=== PATIENT | female | born 1940 | race Caucasian/White ===

== ENCOUNTER 2018-11-27 08:51 | Emergency (ER) | payer OTHER, MEDICAID ==
[~2018-11-27] VITALS: Ht 172.7 cm; Wt 68.1 kg
[2018-11-27 09:19] LABS: CLARITY,URINE CLOUDY (Clear); COLOR,URINE YELLOW (Yellow); GLUCOSE, URINE NEGATIVE (Neg); KETONES,URINE NEGATIVE (Neg); LEUKOCYTE ESTERASE ,URINE LARGE (Neg); NITRITES, URINE NEGATIVE (Neg); OCCULT BLOOD,URINE TRACE-INTACT (Neg); PH,URINE 5.5 (4.8-8.0); PROTEIN,URINE NEGATIVE (Neg); UROBILINOGEN,URINE 0.2 E.U/dL (0.2-1.0)
[2018-11-27 09:23] LABS: UA COLLECTION TYPE CLN CATCH MIDSTREAM
[2018-11-27 09:24] LABS: MUCUS STRANDS FEW /LPF (Neg); SQUAMOUS EPITHELIAL CELL,UR FEW /LPF (FEW); WBC,URINE TNTC /HPF (0-4)
[2018-11-27 09:25] LABS: BACTERIA,URINE 1+ /HPF (Neg); RBC,URINE 0-2 /HPF (0-2)
--- NOTE | 2018-11-27 10:31 | NUR ---
report from Clemente VINSON, care assumed
[2018-11-27] MEDS ORDERED: CEPH500C5 PO (10:40)
[2018-11-27] MEDS ORDERED: PHEN-716 PO (10:50)
[2018-11-27] MEDS: cephalexin 500mg capsule PO ONE (11:02)
[2018-11-27 11:04] VITALS: BP 147/84
== END 2018-11-27 11:05 | disposition home or self-care (01) ==
LOC: ER 08:52
DX: N39.0 Urinary tract infection, site not specified (principal); I10 Essential (primary) hypertension; F03.90 Unspecified dementia, unspecified severity, without behavioral disturbance, psychotic disturbance, mood disturbance, and anxiety; Z79.2 Long term (current) use of antibiotics; Z79.899 Other long term (current) drug therapy
CPT/HCPCS: 81001; 87077; 87088; 87186; 99284

== ENCOUNTER 2020-12-10 09:22 | Emergency (ER) | payer BC, MEDICAID ==
[~2020-12-10] VITALS: Ht 172.7 cm; Wt 81.8 kg
[~2020-12-10 09:22] MED LIST: PHEN-716 PO
[2020-12-10 09:27] VITALS: BP 160/67
[2020-12-10] MEDS ORDERED: CEPH250T PO (11:27)
== END 2020-12-10 11:43 | disposition home or self-care (01) ==
LOC: ER 09:24
DX: L08.9 Local infection of the skin and subcutaneous tissue, unspecified (principal); F03.90 Unspecified dementia, unspecified severity, without behavioral disturbance, psychotic disturbance, mood disturbance, and anxiety; E11.9 Type 2 diabetes mellitus without complications; I10 Essential (primary) hypertension; Z79.2 Long term (current) use of antibiotics; Z79.899 Other long term (current) drug therapy
CPT/HCPCS: 73660; 99283

== ENCOUNTER 2021-04-08 21:45 | Emergency (ER) | payer BC, MEDICAID ==
[~2021-04-08] VITALS: Ht 175.3 cm; Wt 75.0 kg
--- NOTE | 2021-04-08 22:20 | NUR ---
Left message with listed number of daughter named Wilma.
--- NOTE | 2021-04-08 22:26 | NUR ---
spoke with [employer], pt is confused and has no where to go, does not know where she is. We explained that we will be doing a medical workup to rule out any medical issues.
[2021-04-08 22:34] VITALS: BP 177/96
[2021-04-08 23:16] LABS: BASOPHILS % (AUTO) 0.3 % (0-1); EOSINOPHILS % (AUTO) 0.4 % (0-6); HEMATOCRIT 39.3 % (35.0-45.0); HEMOGLOBIN 13.1 g/dl (12.0-16.0); LYMPHOCYTES # (AUTO) 1.3 X10'3 (1.1-4.8); MEAN CORPUSCULAR HEMOGLOBIN 29.2 PG (27.0-31.0); MEAN CORPUSCULAR HGB CONC 33.2 g/dL (33.0-36.5); MEAN CORPUSCULAR VOLUME 87.8 FL (78-98); MEAN PLATELET VOLUME 7.9 FL (7.4-10.4); MONOCYTES # (AUTO) 0.7 X10'3 (0-0.9); MONOCYTES % (AUTO) 9.3 % (2-12); NEUTROPHILS # (AUTO) 5.4 X10'3 (1.8-7.7); PLATELET COUNT 254 X10'3 (140-440); RED BLOOD COUNT 4.48 X10'6 (4.20-5.60); RED CELL DISTRIBUTION WIDTH 14.4 % (11.5-14.5); WHITE BLOOD COUNT 7.5 X10'3 (4.5-11.0)
[2021-04-08 23:35] LABS: ALANINE AMINOTRANSFERASE 33 U/L (12-78); ALBUMIN 3.6 G/DL (3.4-5.0); ALKALINE PHOSPHATASE 208 IU/L (46-116); ANION GAP 11 (8-16); ASPARTATE AMINO TRANSFERASE 32 U/L (10-37); BILIRUBIN,TOTAL 0.4 MG/DL (0.1-1.0); BLOOD UREA NITROGEN 36 MG/DL (7-18); CALCIUM 8.9 MG/DL (8.5-10.1); CHLORIDE 109 MMOL/L (99-107); ETHANOL < 0.010 GM/DL (0.0-0.010); GLUCOSE 125 MG/DL (70-104); POTASSIUM 3.6 MMOL/L (3.5-5.1); SODIUM 144 MMOL/L (135-145); TOTAL CARBON DIOXIDE 23.7 MMOL/L (24-32); TOTAL PROTEIN 7.3 G/DL (6.4-8.2); eGFR 53 ML/MIN
--- NOTE | 2021-04-09 03:38 | NUR ---
Unable to communicate with patient until translation phone could be found, but patient dementia inhibited attempt at assessment. Pt daughter came to ER and was able to communicate with patient. MD released patient to daughter after evaluation by MD. Pt ambulated out of ER with family member to [facility].
== END 2021-04-09 03:45 | disposition home or self-care (01) ==
LOC: ER 21:46
DX: F03.91 Unspecified dementia, unspecified severity, with behavioral disturbance (principal); I10 Essential (primary) hypertension; Z91.83 Wandering in diseases classified elsewhere; Z79.899 Other long term (current) drug therapy
CPT/HCPCS: 36415; 80053; 80320; 85025; 99283